=== PATIENT | male | born 1980 | race Caucasian/White ===

== ENCOUNTER → 2019-09-25 09:25 | Outpatient (CLI) | payer BC, SELFPAY ==
[2019-09-25 10:04] LABS: Add Manual Diff / Slide Review NO; Basophils Absolute Auto 0 /uL (0-100); Basophils Percent Auto 0.6 % (0-2); Eosinophils Absolute Auto 300 /uL (0-450); Eosinophils Percent Auto 5.5 % (2-4); Hematocrit 41.8 % (41-53); Hemoglobin 14.1 g/dL (13.5-17.5); Lymphocytes Absolute Auto 1100 /uL (1100-4500); Lymphocytes Percent Auto 18.1 % (25-40); Mean Corpuscular HGB Conc 33.7 % (30-36); Mean Corpuscular Hemoglobin 28.8 PG (26-34); Mean Corpuscular Volume 85.4 fL (80-100); Monocytes Absolute Auto 500 /uL (0-900); Monocytes Percent Auto 8.5 % (3-14); Neutrophils Absolute Auto 4300 /uL (1500-7000); Neutrophils Percent Auto 67.3 % (50-75); Platelet Count 326 X10^3/uL (150-400); Red Cell Distribution Width 15.2 % (11.6-14.8); White Blood Cell Count 6.3 X10^3/uL (4.5-11.0)
[2019-09-25 10:20] LABS: Alanine Aminotransferase 46 IU/L (<50); Albumin 4.5 g/dL (3.5-5.0); Albumin Globulin Ratio 1.5 (1.0-2.8); Alkaline Phosphatase 84 U/L (38-126); Aspartate Aminotransferase 39 IU/L (17-59); Bilirubin Total 0.7 mg/dL (0.2-1.3); Blood Urea Nitrogen 18 mg/dL (9-20); Calcium 9.3 mg/dL (8.4-10.2); Carbon Dioxide 27 mmol/L (22-32); Chloride 101 mmol/L (98-107); Cholesterol 215 mg/dL (140-199); Estimated Glomerular Filt Rate > 60.0 mL/min (>60); Glucose 86 mg/dL (70-100); HDL Cholesterol 56 mg/dL (40-60); HEMOLYSIS < 15 (0-50); LDL Cholesterol Calculated 143 mg/dL (<100); Potassium 4.6 mmol/L (3.4-5.1); Sodium 137 mmol/L (137-145); Total Protein 7.5 g/dL (6.3-8.2); Triglycerides 81 mg/dL (35-150)
== END ==
PROVIDERS: PCP Internal Medicine; Visit Provider Internal Medicine
DX: Z13.6 Encounter for screening for cardiovascular disorders (principal); Z13.220 Encounter for screening for lipoid disorders
CPT/HCPCS: 36415; 80053; 80061; 85025

== ENCOUNTER → 2019-11-22 13:04 | Outpatient (CLI) | payer BC, SELFPAY ==
--- NOTE | 2019-11-22 | DI.RAD.S_ITS ---
PROCEDURE: XR HIP W PEL IF DONE RT 2V INDICATIONS: Pain in right hip TECHNIQUE: AP pelvis with lateral view(s) of the right hip(s). COMPARISON: None. FINDINGS: Bones: No fractures or dislocations. Pelvic ring appears intact. No suspicious bony lesions. Soft tissues: The visualized bowel gas pattern is normal. No suspicious soft tissue calcifications. IMPRESSION: Mild symmetric hip joint osteoarthritis, source of asymmetric right-sided pain is not seen. Dictated by: Edward Aldridge M.D. on 11/22/2019 at 14:31 Approved by: Edward Aldridge M.D. on 11/22/2019 at 14:31
== END ==
PROVIDERS: PCP Internal Medicine; Visit Provider Internal Medicine
DX: M25.551 Pain in right hip (principal); M16.0 Bilateral primary osteoarthritis of hip
CPT/HCPCS: 73502

== ENCOUNTER → 2019-12-01 07:26 | Outpatient (CLI) | payer BC, SELFPAY ==
--- NOTE | 2019-12-01 | DI.MRI.S_ITS ---
PROCEDURE: MR HIP RT WO CON INDICATIONS: Pain in right hip TECHNIQUE: Noncontrast coronal T1 spin echo and STIR through the bony pelvis. Coronal and axial T2 fast spin echo with fat saturation, sagittal T1 spin echo, and oblique axial T2 fast spin echo with fat saturation through the hip. COMPARISON: [facility], CR, XR HIP W PEL IF DONE RT 2V, 11/22/2019, 13:14. FINDINGS: Image quality: Diagnostic. Bones and joints: No acute fracture, dislocation, or suspicious osseous lesion is identified involving the osseous structures of the right hip. There is moderate marrow edema identified along the lesser trochanter of the right hip. There is a perpendicular oriented area of decreased signal intensity on all imaging sequences perpendicular to the overlying cortex of this area of marrow edema. No evidence of avascular necrosis is present. Heterogeneity of the hyaline articular cartilage of the right hip joint is present with small cartilaginous defects evident. No significant joint effusion is appreciated. The alpha angle of the right femoral head measures approximately 54?. The other imaged osseous structures of the pelvis demonstrate no acute fracture. Small foci of decreased T1 signal and increased signal in the fluid sensitive sequences is identified involving the right acetabulum, right ischium and the right superior pubic ramus. A similar appearance to a lesser degree also appears to be present involving the posterior left iliac bone. Other moderate degenerative changes are noted involving the other pelvic joints and included lower lumbar spine, which are not well characterized. Labrum: Evaluation of the acetabular labrum is suboptimal without intra-articular contrast. However, there is irregularity evident along the anterosuperior aspect of the labrum with a few very small para labral cysts, compatible with degenerative labral tearing that likely extends from the 10 o'clock position to 2 o'clock position. No detached ebral fragments are appreciated. Tendons and ligaments: The ligamentum teres appears intact where visualized. There is thickening and increased signal involving the distal gluteus minimus tendon. Slight peritendinous edema about the distal gluteus medius tendon. Thickening of the greater trochanteric bursa is present without significant fluid contained within the bursa. The distal iliopsoas tendons are intact. No significant edema involving the imaged muscles of the proximal right thigh/gluteal region are evident. Soft tissues: Visualized muscles demonstrate normal bulk and internal signal. Quadratus femoris muscle demonstrates no internal edema to suggest ischiofemoral impingement. The proximal sciatic neurovascular bundle appears normal adjacent to the hamstring tendons. No free pelvic fluid. Bladder wall thickness is normal. Genitourinary structures and bowel loops appear normal where visualized. IMPRESSION: 1. Apparent stress fracture involving the lesser trochanter of the proximal left femur is unusual. Conventional radiographic followup is recommended. The need for confirmation utilizing CT may be determined clinically. 2. Scattered foci of heterogeneous signal involving the pelvic bones may represent small foci of red marrow reconversion. Other etiologies are difficult to exclude. A nuclear medicine bone scan is recommended for further evaluation to exclude the possibility of metastatic lesions. 3. Mild degenerative changes of the right hip. 4. Moderate-sized superior right acetabular labral tear. Dictated by: Sharad Velez M.D. on 12/01/2019 at 14:12 Approved by: Sharad Velez M.D. on 12/01/2019 at 14:25
== END ==
PROVIDERS: PCP Internal Medicine; Visit Provider Internal Medicine
DX: M25.551 Pain in right hip (principal); S73.191A Other sprain of right hip, initial encounter
CPT/HCPCS: 73721

== ENCOUNTER → 2019-12-20 08:48 | Outpatient (CLI) | payer BC, SELFPAY | PROVIDERS: PCP Internal Medicine; Referring Provider Orthopaedic Surgery; Visit Provider Orthopaedic Surgery | DX: M84.351A Stress fracture, right femur, initial encounter for fracture (principal) | CPT/HCPCS: 36415; 82306 ==